=== PATIENT | male | born 1965 | race Two or more races ===

== ENCOUNTER 2024-01-30 03:50 | Emergency (ER) | payer BC, OTHER ==
[~2024-01-30] VITALS: Ht 172.7 cm; Wt 89.0 kg
[2024-01-30 04:45] VITALS: BP 123/73; PULSE 111; PULSE 88; RESP 16; TEMP 98.1; O2SAT 96; O2SAT 99
[2024-01-30 05:06] LABS: COVID19 ANTIGEN SOFIA FIA POSITIVE (NEGATIVE); Rapid Influenza A Negative (Negative); Rapid Influenza B Negative (Negative)
[2024-01-30] MEDS ORDERED: NIRM1TAB8 PO (05:10)
[2024-01-30] MEDS: KETOROLAC TROMETH 30 MG/ML 1ML VIAL IM ONE (05:22)
== END 2024-01-30 05:34 | disposition home or self-care (01) ==
LOC: ER 03:50 → EEVIPCON 03:50 → ER 05:32
DX: U07.1 COVID-19 (principal); E11.9 Type 2 diabetes mellitus without complications; Z88.8 Allergy status to other drugs, medicaments and biological substances
CPT/HCPCS: 36415; 71045; 87426; 87804; 96372; 99284; J1885

== ENCOUNTER 2024-03-27 13:10 | Inpatient (IN) | payer BC, OTHER ==
[~2024-03-27] VITALS: Ht 172.7 cm; Wt 75.5 kg
[~2024-03-27 13:10] MED LIST: NIRM1TAB8 PO
[2024-03-27] MEDS: SODIUM CHLORIDE 0.9% 1,000 ML IV ONE (14:25)
[2024-03-27] MEDS: metFORMIN HYDROCHLORIDE 500 MG TAB PO ONE (14:32)
[2024-03-27 14:41] LABS: Basophils # (auto) 0 10 ^3/uL (0-0.2); Basophils % (auto) 0.2 % (0.0-2.0); Eosinophils # (auto) 0.1 10 ^3/uL (0-0.8); Eosinophils % (auto) 1.7 % (0.0-7.0); Hematocrit 47.6 % (41.0-53.0); Hemoglobin 16.4 g/dL (13.5-17.5); Lymphocytes % (auto) 12.3 % (10.0-50.0); Mean Corpuscular Hemoglobin 33.1 pg (28.0-32.0); Mean Corpuscular Hgb Conc. 34.5 g/dL (32.0-36.0); Monocytes # (auto) 0.3 10 ^3/uL (0-1.3); Monocytes % (auto) 4.2 % (0.0-12.0); Neutrophils # (auto) 6.6 10 ^3/uL (1.6-8.6); Neutrophils % (auto) 81.6 % (37.0-80.0); Nucleated Red Blood Cells % 0.1 %; Platelet Count (auto) 188 10^3/uL (140-450); Red Blood Cells 4.96 10^6/uL (4.5-5.90); Red Cell Distribution Width 13.4 % (11.8-14.3); White Blood Cell 8.1 10^3/uL (4.4-10.8)
[2024-03-27 14:43] LABS: Alanine Aminotransferase 32 U/L (7-40); Albumin 4.1 g/dL (3.2-4.8); Alkaline Phosphatase 74 U/L (46-116); Anion Gap 6 (5-15); Aspartate Aminotransferase 19 U/L (13-40); BUN/Creatinine Ratio 19.6 (10.0-20.0); Bilirubin, Total 0.7 mg/dL (0.2-1.0); Blood Urea Nitrogen 21 mg/dL (9-23); Calcium 9.5 mg/dL (8.7-10.4); Carbon Dioxide 29 mmol/L (20-30); Chloride 99 mmol/L (98-107); Glucose 285 mg/dL (74-106); Magnesium 1.9 mg/dL (1.6-2.6); Potassium 4.2 mmol/L (3.5-5.1); Sodium 134 mmol/L (136-145)
[2024-03-27 14:44] LABS: Total Protein 6.3 g/dL (5.7-8.2)
[2024-03-27 14:48] LABS: Urine Bacteria MOD /hpf (None Seen); Urine Blood Negative /uL (Negative); Urine Clarity Turbid (Clear); Urine Color Colorless (Yellow); Urine Mucus FEW (None Seen); Urine Protein, UAD TRACE (Negative); Urine Specific Gravity 1.036 (1.001-1.035); Urine Urobilinogen Normal (Negative); Urine WBC 329 /hpf (0 - 3); Urine pH 5.5 (5.0-9.0)
[2024-03-27] MEDS ORDERED: DEXTROSE (50%) 50ML SYRG IV PRN (16:30)
[2024-03-27] MEDS ORDERED: ONDANSETRON HCL 4 MG/2 ML VIAL IV PRN (16:30)
[2024-03-27] MEDS ORDERED: DOCUSATE SOD 100 MG CAP PO PRN (16:30)
[2024-03-27] MEDS ORDERED: NITROGLYCERIN 0.4 MG SL TAB SL PRN (16:30)
[2024-03-27] MEDS ORDERED: MORPHINE SULFATE INJ 2 MG/ml SYRG IV PRN (16:30)
[2024-03-27] MEDS: SODIUM CHLORIDE 0.9% 1,000 ML IV SCH (17:55)
[2024-03-27] MEDS: cefTRIAXone 1GM/50ML D5W 50 ML IV ONE (17:55)
[2024-03-27] MEDS: AZITHROMYCIN 500MG/ 250ML 250 ML IV ONE (17:56)
[2024-03-27 19:45] VITALS: O2SAT 96
[2024-03-27 20:15] VITALS: O2SAT 96
[2024-03-27] MEDS: ACCU-CHEK COMFORT CURVE STRIP VI SCH (20:23)
[2024-03-27] MEDS: InsuLIN REG 1unit/0.01ml Soln (100units/ml) SC SCH (20:25)
[2024-03-27] MEDS: HYDROcodone-ACET 5/325MG TAB PO PRN (21:58)
[2024-03-27 22:07] VITALS: O2SAT 96
[2024-03-27 22:50] VITALS: BP 118/74; PULSE 89; RESP 18; TEMP 98.3; O2SAT 94
[2024-03-27 23:17] VITALS: BP 118/74; PULSE 89; RESP 18; TEMP 98.3; O2SAT 94
[2024-03-28] VITALS (8 sets, daily range): BP systolic 106–132; BP diastolic 56–84; PULSE 16–98; RESP 16–94; TEMP 98–99.3; O2SAT 94–98
[2024-03-28] MEDS ORDERED: METF-370 PO (06:26)
[2024-03-28 06:50] LABS: Basophils # (auto) 0 10 ^3/uL (0-0.2); Basophils % (auto) 0.1 % (0.0-2.0); Eosinophils # (auto) 0.1 10 ^3/uL (0-0.8); Eosinophils % (auto) 2.2 % (0.0-7.0); Hematocrit 43.9 % (41.0-53.0); Hemoglobin 15.4 g/dL (13.5-17.5); Lymphocytes # (auto) 0.8 10 ^3/uL (0.4-5.4); Mean Corpuscular Hemoglobin 33.3 pg (28.0-32.0); Mean Corpuscular Hgb Conc. 35.2 g/dL (32.0-36.0); Mean Corpuscular Volume 94.5 fL (80.0-100.0); Monocytes # (auto) 0.2 10 ^3/uL (0-1.3); Monocytes % (auto) 5.2 % (0.0-12.0); Neutrophils # (auto) 3.6 10 ^3/uL (1.6-8.6); Neutrophils % (auto) 76.5 % (37.0-80.0); Nucleated Red Blood Cells % 0.1 %; Platelet Count (auto) 142 10^3/uL (140-450); Red Blood Cells 4.64 10^6/uL (4.5-5.90); White Blood Cell 4.7 10^3/uL (4.4-10.8)
[2024-03-28 07:06] LABS: Alanine Aminotransferase 30 U/L (7-40); Albumin 3.5 g/dL (3.2-4.8); Alkaline Phosphatase 65 U/L (46-116); Calcium 8.4 mg/dL (8.7-10.4); Carbon Dioxide 24 mmol/L (20-30); Chloride 104 mmol/L (98-107)
[2024-03-28 07:07] LABS: Anion Gap 5 (5-15); Aspartate Aminotransferase 22 U/L (13-40); BUN/Creatinine Ratio 20.3 (10.0-20.0); Bilirubin, Total 0.6 mg/dL (0.2-1.0); Blood Urea Nitrogen 14 mg/dL (9-23); Potassium 3.6 mmol/L (3.5-5.1); Sodium 133 mmol/L (136-145); Total Protein 5.7 g/dL (5.7-8.2)
[2024-03-28 07:08] LABS: Glucose 161 mg/dL (74-106)
[2024-03-28] MEDS: cefTRIAXone 1GM/50ML D5W 50 ML IV SCH (08:35)
[2024-03-28] MEDS: AZITHROMYCIN 500MG/ 250ML 250 ML IV SCH (10:53)
[2024-03-28] MEDS ORDERED: DEXTROSE (50%) 50ML SYRG IV PRN (11:45)
[2024-03-28] MEDS: InsuLIN REG 1unit/0.01ml Soln (100units/ml) SC ONE (13:15)
[2024-03-28] MEDS: ACCU-CHEK COMFORT CURVE STRIP VI SCH (17:05)
[2024-03-28] MEDS: ACETAMINOPHEN 325 MG TAB PO PRN (17:59)
[2024-03-28] MEDS: TAMSULOSIN HYDROCHLORIDE 0.4 MG CAP PO SCH (17:59)
[2024-03-28] MEDS: InsuLIN REG 1unit/0.01ml Soln (100units/ml) SC SCH (18:05)
[2024-03-28 18:50] LABS: COVID19 ANTIGEN SOFIA FIA NEGATIVE (NEGATIVE); Rapid Influenza A Negative (Negative); Rapid Influenza B Negative (Negative)
[2024-03-29 04:46] VITALS: BP 109/76; PULSE 78; RESP 14; TEMP 98; O2SAT 95
[2024-03-29 08:00] VITALS: PULSE 85
[2024-03-29 08:07] LABS: PSA Free 0.13 ng/mL; Prostate Specific Antigen 1.2 ng/mL (0.0-4.0)
[2024-03-29 09:00] VITALS: BP 131/80; PULSE 96; RESP 18; TEMP 97.8; O2SAT 95
[2024-03-29] MEDS ORDERED: LEVO500T91 PO (10:43)
[2024-03-29] MEDS ORDERED: TAMS-35 PO (10:43)
== END 2024-03-29 12:48 | disposition home or self-care (01) | DRG 725 ==
LOC: ER 13:10 → EEVIPCON 13:10 → TELE 16:28 → TELE-E-ADS 23:20
PROVIDERS: ADMIT Nurse Practitioner Family; ATTEND Internal Medicine Geriatric Medicine
DX: N40.1 Benign prostatic hyperplasia with lower urinary tract symptoms (principal); J18.9 Pneumonia, unspecified organism; N39.0 Urinary tract infection, site not specified; E11.65 Type 2 diabetes mellitus with hyperglycemia; R35.0 Frequency of micturition; K59.00 Constipation, unspecified; Z79.84 Long term (current) use of oral hypoglycemic drugs; Z79.899 Other long term (current) drug therapy; Z79.4 Long term (current) use of insulin
CPT/HCPCS: 36415; 71045; 80053; 81001; 82962; 83605; 83735; 84154; 84484; 85025; 87086; 87088; 87186; 87426; 87804; G0378; J1815

== ENCOUNTER → 2024-05-15 | Outpatient (CLI) | payer BC, OTHER ==
[~2024-05-15] MED LIST changes: +LEVO500T91 PO; +METF-370 PO; -NIRM1TAB8 PO; +TAMS-35 PO
[2024-05-15 07:28] LABS: Urine Bacteria FEW /hpf (None Seen); Urine Blood Negative /uL (Negative); Urine Clarity Clear (Clear); Urine Color Yellow (Yellow); Urine Mucus FEW (None Seen); Urine Protein, UAD Negative (Negative); Urine Specific Gravity 1.024 (1.001-1.035); Urine Urobilinogen Normal (Negative); Urine WBC 3 /hpf (0 - 3); Urine pH 5.5 (5.0-9.0)
[2024-05-15 07:55] LABS: Creatinine, Urine 165.28 mg/dL (30.0-125.0); Triglycerides 91 mg/dL (< 150)
[2024-05-15 07:56] LABS: LDL Cholesterol 107 mg/dL (< 100)
[2024-05-15 07:57] LABS: Cholesterol 188 mg/dL (< 200); HDL Cholesterol 64 mg/dL (40-59)
[2024-05-15 08:02] LABS: Free T4 (Free Thyroxine) 1.47 ng/dL (0.89-1.76)
== END | disposition home or self-care (01) ==
LOC: LAB 07:00
PROVIDERS: ATTEND Internal Medicine
DX: N40.0 Benign prostatic hyperplasia without lower urinary tract symptoms (principal); E11.9 Type 2 diabetes mellitus without complications
CPT/HCPCS: 36415; 80061; 81001; 82043; 82570; 82607; 84439; 84443

== ENCOUNTER 2024-09-25 06:15 | Emergency (ER) | payer BC, OTHER ==
[~2024-09-25] VITALS: Ht 172.7 cm; Wt 91.7 kg
--- NOTE | 2024-09-25 06:52 | ED.PDOC ---
GI ASSESSMENT HPI Comments 59 year old male presents to the ED with chief complaint of N/V/D and hyperglycemia. Patient reports that he has been experiencing N/V/D since yesterday with associated hyperglycemia, noting that his BG yesterday was 252. Patient relays that he has been off of his Metformin for the past week due to insurance issues with his refill at the pharmacy. Patient denies any abdominal pain, fever, chills, dysuria, excess thirst, headache, or hematemesis. Chief Complaint: Hyperglycemia Time Seen by MD: 06:49 Primary Care Provider: UNKNOWN Reviewed Notes: Nurses Notes, Medications, Allergies Allergies: Coded Allergies: NO KNOWN ALLERGIES (Unverified , 01/30/24) Home Meds Active Scripts Metformin Hydrochloride (Metformin Hcl) 500 Mg Tab, 1 TAB PO BID for 5 Days, #10 TAB 3 Refills Prov:KENYA ELAINE MD 09/25/24 Levofloxacin Hemihydrate (LEVOFLOXACIN) 500 Mg Tab, 500 MG PO DAILY for 10 Days, #10 MG Prov:KENYA ELAINE MD 09/25/24 Ondansetron Odt 4MG Tab (ZOFRAN PO) 4 Mg Tb, 4 MG PO DAILY for 5 Days, #5 TAB ODT TAB-DISSOLVE IN MOUTH, THEN SWALLOW Prov:KENYA ELAINE MD 09/25/24 Tamsulosin Hcl (Flomax) 0.4 Mg Cap, 1 CAP PO DAILY, #30 CAP 11 Refills Prov:BOB RODAS MD 03/29/24 Levofloxacin Hemihydrate (LEVOFLOXACIN) 500 Mg Tab, 1 TAB PO DAILY, #7 TAB Prov:BOB RODAS MD 03/29/24 Reported Medications Metformin Hydrochloride (Metformin Hcl) 500 Mg Tab, 1000 MG PO DAILY for 30 Days, MG 03/28/24 Information Source: Patient Mode of Arrival: Ambulatory Timing: Days Duration: Since onset Prehospital treatment: None Quality: None Vomitus: Watery Stool: Watery Severity: Moderate Recent: None Recent Hx of: Diabetes Pain Location: None Modifying Factors: Nothing Associated sign and symptoms: Nausea, Vomiting, Diarrhea Past Medical History PAST MEDICAL HISTORY: DM Surgical History: Denies all surgeries Family History Family History: Reviewed,noncontributory to illness, No family hx of Cancer, No family hx of DM, No family hx of Heart nic, No family hx of HTN, No family hx ofKidney nic, No family hx of Liver nic, No family hx of Lung nic, No family hx of Stroke Social History Smoker: Non-Smoker Alcohol: Denies ETOH Use Drugs: Denies Drug Use Lives In: Home Constitutional: denies: chills, diaphoresis, fatigue, fever, malaise, sweats, w eakness, others EENTM: denies: blurred vision, double vision, ear bleeding, ear discharge, ear drainage, ear pain, ear ringing, eye pain, eye redness, hearing loss, mouth pain, mouth swelling, nasal discharge, nose bleeding, nose congestion, nose pain, photophobia, tearing, throat pain, throat swelling, voice changes, others Respiratory: denies: cough, hemoptysis, orthopnea, SOB at rest, shortness of breath, SOB with excertion, stridor, wheezing, others Cardiovascular: denies: chest pain, dizzy spells, diaphoresis, Dyspnea on exertion, edema, irregular heart beat, left arm pain, lightheadedness, palpitations, PND, syncope, others Gastrointestinal: reports: diarrhea, nausea, vomiting; denies: abdomen distended, abdominal pain, blood streaked bowels, constipated, dysphagia, difficulty swallowing, hematemesis, melena, poor appetite, poor fluid intake, rectal bleeding, rectal pain, others Genitourinary: denies: burning, dysuria, flank pain, frequency, hematuria, incontinence, penile discharge, penile sore, pain, testicle pain, testicle swelling, urgency, others Neurological: denies: dizziness, fainting, headache, left sided numbness, left sided weakness, numbness, paresthesia, pre-existing deficit, right sided numbness, right sided weakness, seizure, speech problems, tingling, tremors, weakness, others Musculoskeletal: denies: back pain, gout, joint pain, joint swelling, muscle pain, muscle stiffness, neck pain, others Integumetry: denies: bruises, change in color, change in hair/nails, dryness, laceration, lesions, lumps, rash, wounds, others Allergic/Immunocompromised: denies: Difficulty Healing, Frequent Infections, Hives, Itching, others Hematologic/Lymphatic: denies: anemia, blood clots, easy bleeding, easy bruising, swollen glands, others Endocrine: reports: others (hyperglycemia); denies: excessive hunger, excessive sweating, excessive thirst, excessive urination, flushing, intolerance to cold, intolerance to heat, unexplained weight gain, unexplained weight loss Psychiatric: denies: anxiety, bipolar disorder, depression, hopeless, panic disorder, schizophrenia, sleepless, suicidal, others All Other Systems: Reviewed and Negative Physical Exam General Appearance: Moderate Distress, Normal HEENT: Normal ENT Inspection, PERRL/EOMI Neck: Full Range of Motion, Non-Tender, Normal, Normal Inspection Respiratory: Chest Non-Tender, Lungs Clear, No Accessory Muscle Use, No Respiratory Distress, Normal Breath Sounds Cardiovascular: No Edema, No JVD, No Murmur, No Gallop, Normal Peripheral Pulses, Regular Rate/Rhythm Breast Exam: Deferred Gastrointestinal: No Organomegaly, Non Tender, No Pulsatile Mass, Normal Bowel Sounds, Soft Genitalia: Deferred Pelvic: Deferred Rectal: Deferred Extremities: No calf tenderness, Normal capillary refill, Normal inspection, Normal range of motion, Non-tender, No pedal edema Musculoskeletal : Apperance: Normal Neurologic: Alert, 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 Was a procedure done?: No GI differential Dx Differential Diagnosis: Constipation, Diverticular disease, Esophagitis, Gastritis/PUD, Gastroenteritis X-Ray, Labs, Meds, VS Vital Signs Date Time Temp Pulse Resp B/P (MAP) Pulse Ox O2 Delivery O2 Flow Rate FiO2 09/25/24 08:00 97.5 91 18 139/93 (108) 97 97.5 09/25/24 07:33 Room Air* 0 21 09/25/24 06:31 97.6 105 18 123/89 (100) 95 97.6 Lab Test 09/25/24 08:40 09/25/24 08:01 09/25/24 07:06 09/25/24 06:27 Range/Units POC Glucose 173 H 234 H 284 H 70-106 mg/dl White Blood Count 7.0 4.4-10.8 10^3/uL Red Blood Count 5.19 4.5-5.90 10^6/uL Hemoglobin 17.3 13.5-17.5 g/dL Hematocrit 49.3 41.0-53.0 % Mean Corpuscular Volume 94.9 80.0-100.0 fL Mean Corpuscular Hemoglobin 33.3 H 28.0-32.0 pg Mean Corpuscular Hemoglobin Concent 35.1 32.0-36.0 g/dL Red Cell Distribution Width 12.6 11.8-14.3 % Platelet Count 174 140-450 10^3/uL Mean Platelet Volume 8.3 6.9-10.8 fL Neutrophils (%) (Auto) 72.9 37.0-80.0 % Lymphocytes (%) (Auto) 19.4 10.0-50.0 % Monocytes (%) (Auto) 6.0 0.0-12.0 % Eosinophils (%) (Auto) 1.5 0.0-7.0 % Basophils (%) (Auto) 0.2 0.0-2.0 % Neutrophils # (Auto) 5.1 1.6-8.6 10 ^3/uL Lymphocytes # (Auto) 1.4 0.4-5.4 10 ^3/uL Monocytes # (Auto) 0.4 0-1.3 10 ^3/uL Eosinophils # (Auto) 0.1 0-0.8 10 ^3/uL Basophils # (Auto) 0 0-0.2 10 ^3/uL Nucleated Red Blood Cells 0.1 % Sodium Level 133 L 136-145 mmol/L Potassium Level 3.3 L 3.5-5.1 mmol/L Chloride Level 102 98-107 mmol/L Carbon Dioxide Level 22 20-31 mmol/L Anion Gap 9 5-15 Blood Urea Nitrogen 15 9-23 mg/dL Creatinine 1.17 0.700-1.30 mg/dL Glomerular Filtration Rate Calc 72 >90 mL/min BUN/Creatinine Ratio 12.8 10.0-20.0 Serum Glucose 267 H 74-106 mg/dL Calcium Level 8.0 L 8.7-10.4 mg/dL Current Medications Medications (Trade) Dose Ordered Sig/Roma Route Start Time Stop Time Status Last Admin Sodium Chloride 1,000 ml @ 1,000 mls/hr Q1H ONCE IV 09/25/24 06:45 09/25/24 07:44 DC 09/25/24 06:53 Sodium Chloride 1,000 ml @ 150 mls/hr Q6H40M ONCE IV 09/25/24 06:45 09/25/24 13:24 09/25/24 07:44 Insulin Human Regular (InsuLIN R) 3 units ONCE ONCE IV 09/25/24 08:00 09/25/24 08:01 DC 09/25/24 08:13 Potassium Bicarbonate (Klor-Con/Ef) 25 meq ONCE ONCE PO 09/25/24 08:15 09/25/24 08:16 DC 09/25/24 08:13 CT Abd/Pel: FINDINGS: Lung bases: Fibrotic changes in the lung bases. Liver: Hepatic steatosis. Biliary: Calcified gallstones of the gallbladder neck and possibly in the cystic duct, with narrowing of the gallbladder neck. Spleen: Unremarkable. Pancreas: Grossly unremarkable in its noncontrast enhanced appearance. Adrenal glands: Unremarkable. No mass. Kidneys: No hydronephrosis. No renal or ureteral calculi. Nonspecific slight lobulated contour of the mid to upper pole of the right kidney Aorta/Vascular: No aneurysm or significant calcification. Retroperitoneum: No mass or lymphadenopathy. Bowel/mesentery: No small bowel obstruction. No free air or free fluid. Appendix is visualized and appears unremarkable. Scattered colonic diverticula without adjacent inflammatory changes to suggest diverticulitis. Pelvic organs: Grossly unremarkable. Bladder: Grossly unremarkable. Abdominal wall: Moderate fat containing direct right inguinal hernia. Bones: No acute fracture or suspicious intraosseous lesion. IMPRESSION: 1. Cholelithiasis. 2. Hepatic steatosis. 3. Scattered colonic diverticula without adjacent inflammatory changes to suggest diverticulitis. 4. Moderate-sized fat containing direct right inguinal hernia 5. Fibrotic changes in the lung bases with some honeycombing. Findings may be seen with usual interstitial pneumonia or fibrotic nonspecific interstitial pneumonia. Patient alert. Complaining of generalized weakness. Nausea vomiting diarrhea since yesterday. Vitals stable. Blood sugar elevated. Abdomen is soft nontender. CT scan of the abdomen reviewed does show gallstones lung cuts does show pneumonia. Establish intravenous access. Was given fluids. Was given insulin. Was given prescription of Zofran Levaquin antibiotic. Explained to the patient. Was told to follow up with his primary care physician. Was told to come back if there is any problem. Time of 1ST Reevaluation: 07:49 Reevaluation 1ST: Unchanged Patient Education/Counseling: Diagnosis, Treatment Family Education/Counseling: No Family Present Additional Information Previous visit documents reviewed: 03/27/24 for pneumonia The following tests were ordered, and results were reviewed by me: CBC, BMP, CT Abd/Pel Additional Information was gathered from interviewing the following independent historians: None I reviewed and agreed with the following test results read by other providers: CT Abd/Pel I discussed treatment and results with medical personnel and: Patient Departure 1 Departure Time of Disposition: 07:53 Impression: Primary Impression: Uncontrolled diabetes mellitus Qualified Codes: E13.65 - Other specified diabetes mellitus with hyperglycemia Additional Impressions: Pneumonia, interstitial Interstitial pneumonia Disposition: HOME / SELF CARE / HOMELESS Condition: Good e-Prescriptions Metformin Hydrochloride (Metformin Hcl) 500 Mg Tab 1 TAB PO BID for 5 Days, #10 TAB 3 Refills Prov: KENYA ELAINE MD 09/25/24 Levofloxacin Hemihydrate (LEVOFLOXACIN) 500 Mg Tab 500 MG PO DAILY for 10 Days, #10 MG Prov: KENYA ELAINE MD 09/25/24 Ondansetron Odt 4MG Tab (ZOFRAN PO) 4 Mg Tb 4 MG PO DAILY for 5 Days, #5 TAB ODT TAB-DISSOLVE IN MOUTH, THEN SWALLOW Prov: KENYA ELAINE MD 09/25/24 Discharged With: Self Critical Care Note Critical Care Time?: No Stability Stability form required: No Heart Score Heart Score: Heart Score Response (Comments) Value History N/A 0 EKG N/A 0 Age N/A 0 Risk Factors N/A 0 Troponin N/A 0 Total 0 I personally scribed for KENYA ELAINE MD ([email or web address]) on 09/25/24 at 06:52. Electronically submitted by Viktor Rodriguez ([email or web address]). I personally scribed for KENYA ELAINE MD ([email or web address]) on 09/25/24 at 07:37. Electronically submitted by Viktor Rodriguez ([email or web address]). KENYA ELAINE MD Sep 25, 2024 06:52
[2024-09-25] MEDS: SODIUM CHLORIDE 0.9% 1,000 ML IV ONE ×2 (06:53→07:44)
[2024-09-25 07:20] LABS: Basophils # (auto) 0 10 ^3/uL (0-0.2); Basophils % (auto) 0.2 % (0.0-2.0); Eosinophils # (auto) 0.1 10 ^3/uL (0-0.8); Eosinophils % (auto) 1.5 % (0.0-7.0); Hematocrit 49.3 % (41.0-53.0); Hemoglobin 17.3 g/dL (13.5-17.5); Lymphocytes # (auto) 1.4 10 ^3/uL (0.4-5.4); Lymphocytes % (auto) 19.4 % (10.0-50.0); Mean Corpuscular Hemoglobin 33.3 pg (28.0-32.0); Mean Corpuscular Hgb Conc. 35.1 g/dL (32.0-36.0); Mean Corpuscular Volume 94.9 fL (80.0-100.0); Monocytes # (auto) 0.4 10 ^3/uL (0-1.3); Neutrophils # (auto) 5.1 10 ^3/uL (1.6-8.6); Neutrophils % (auto) 72.9 % (37.0-80.0); Nucleated Red Blood Cells % 0.1 %; Platelet Count (auto) 174 10^3/uL (140-450); Red Blood Cells 5.19 10^6/uL (4.5-5.90); Red Cell Distribution Width 12.6 % (11.8-14.3)
[2024-09-25 07:32] LABS: Chloride 102 mmol/L (98-107)
[2024-09-25 07:33] LABS: Anion Gap 9 (5-15); Carbon Dioxide 22 mmol/L (20-31)
--- NOTE | 2024-09-25 07:36 | DVH ---
CLINICAL INFORMATION: 59 years old, Male; enteritis. Abdominal pain. TECHNIQUE: Axial CT images of the abdomen and pelvis were obtained without IV contrast. Coronal and s agittal reformatted images were obtained, reviewed, and stored. Evaluation of the parenchymal organs is limited without IV contrast. Evaluation of the bowel and mesentery is limited without oral contras t. All CT scans at this medical facility are performed using dose modulation techniques as appropriat e to a performed exam including the following: Automated exposure control was utilized; adjustment of the MA and/or KV according to patient size; and use of iterative reconstruction technique. CTDIvol = 18.61 mGy DLP = 1123.28 mGy-cm COMPARISON: None FINDINGS: Lung bases: Fibrotic changes in the lung bases. Liver: Hepatic steatosis. Biliary: Calcified gallstones of the gallbladder neck and possibly in the cystic duct, with narrowing of the gallbladder neck. Spleen: Unremarkable. Pancreas: Grossly unremarkable in its noncontrast enhanced appearance. Adrenal glands: Unremarkable. No mass. Kidneys: No hydronephrosis. No renal or ureteral calculi. Nonspecific slight lobulated contour of the mid to upper pole of the right kidney Aorta/Vascular: No aneurysm or significant calcification. Retroperitoneum: No mass or lymphadenopathy. Bowel/mesentery: No small bowel obstruction. No free air or free fluid. Appendix is visualized and ap pears unremarkable. Scattered colonic diverticula without adjacent inflammatory changes to suggest d iverticulitis. Pelvic organs: Grossly unremarkable. Bladder: Grossly unremarkable. Abdominal wall: Moderate fat containing direct right inguinal hernia. Bones: No acute fracture or suspicious intraosseous lesion. IMPRESSION: 1. Cholelithiasis. 2. Hepatic steatosis. 3. Scattered colonic diverticula without adjacent inflammatory changes to suggest diverticulitis. 4. Moderate-sized fat containing direct right inguinal hernia 5. Fibrotic changes in the lung bases with some honeycombing. Findings may be seen with usual inters titial pneumonia or fibrotic nonspecific interstitial pneumonia.
[2024-09-25 07:38] LABS: BUN/Creatinine Ratio 12.8 (10.0-20.0); Blood Urea Nitrogen 15 mg/dL (9-23)
[2024-09-25 07:40] LABS: Glucose 267 mg/dL (74-106); Potassium 3.3 mmol/L (3.5-5.1); Sodium 133 mmol/L (136-145)
[2024-09-25] MEDS ORDERED: LEVO500T91 PO (07:55)
[2024-09-25] MEDS ORDERED: ZOFR4T PO (07:55)
[2024-09-25] MEDS ORDERED: METF-370 PO (07:55)
[2024-09-25 08:00] VITALS: BP 139/93; PULSE 91; RESP 18; TEMP 97.5; O2SAT 97
[2024-09-25] MEDS: InsuLIN REG 1unit/0.01ml Soln (100units/ml) IV ONE (08:13)
[2024-09-25] MEDS: POTASSIUM EFFERVESENT TAB 25 MEQ PO ONE (08:13)
== END 2024-09-25 09:23 | disposition home or self-care (01) ==
LOC: ER 06:15
DX: E11.65 Type 2 diabetes mellitus with hyperglycemia (principal); J18.9 Pneumonia, unspecified organism; Z79.84 Long term (current) use of oral hypoglycemic drugs; Z79.899 Other long term (current) drug therapy
CPT/HCPCS: 36415; 74176; 80048; 82947; 85025; 96361; 96374; 99285; J1815; J7030; 82962

== ENCOUNTER → 2025-01-07 | Outpatient (CLI) | payer BC ==
[~2025-01-07] MED LIST changes: +ZOFR4T PO
[2025-01-07 06:37] LABS: Urine Bacteria None Seen /hpf (None Seen)
[2025-01-07 07:07] LABS: Basophils # (auto) 0 10 ^3/uL (0-0.2); Basophils % (auto) 0.2 % (0.0-2.0); Eosinophils # (auto) 0.1 10 ^3/uL (0-0.8); Eosinophils % (auto) 1.1 % (0.0-7.0); Hematocrit 50.4 % (41.0-53.0); Hemoglobin 17.2 g/dL (13.5-17.5); Lymphocytes # (auto) 2.5 10 ^3/uL (0.4-5.4); Lymphocytes % (auto) 29.1 % (10.0-50.0); Mean Corpuscular Hemoglobin 31.6 pg (28.0-32.0); Mean Corpuscular Hgb Conc. 34.2 g/dL (32.0-36.0); Mean Corpuscular Volume 92.4 fL (80.0-100.0); Monocytes # (auto) 0.4 10 ^3/uL (0-1.3); Monocytes % (auto) 4.9 % (0.0-12.0); Neutrophils # (auto) 5.6 10 ^3/uL (1.6-8.6); Neutrophils % (auto) 64.7 % (37.0-80.0); Nucleated Red Blood Cells % 0.1 %; Platelet Count (auto) 180 10^3/uL (140-450); Red Blood Cells 5.45 10^6/uL (4.5-5.90); Red Cell Distribution Width 12.9 % (11.8-14.3); White Blood Cell 8.6 10^3/uL (4.4-10.8)
[2025-01-07 07:49] LABS: Urine Blood Negative /uL (Negative); Urine Clarity Clear (Clear); Urine Color Light-Yellow (Yellow); Urine Protein, UAD Negative (Negative); Urine Sperm PRESENT /hpf (None Seen); Urine Squamous Epithelial Cell None Seen /hpf (<5); Urine Urobilinogen Normal (Negative); Urine WBC 3 /HPF (0-3); Urine pH 5.5 (5.0-9.0)
[2025-01-07 08:18] LABS: Alanine Aminotransferase 20 U/L (7-40); Alkaline Phosphatase 64 U/L (46-116); Anion Gap 11 (5-15); Aspartate Aminotransferase 13 U/L (<34); BUN/Creatinine Ratio 16.3 (10.0-20.0); Blood Urea Nitrogen 14 mg/dL (9-23); Calcium 9.3 mg/dL (8.7-10.4); Carbon Dioxide 24 mmol/L (20-31); Chloride 103 mmol/L (98-107); Cholesterol 170 mg/dL (< 200); HDL Cholesterol 50 mg/dL (40-59); LDL Cholesterol 84 mg/dL (< 100); Potassium 4.1 mmol/L (3.5-5.1); Sodium 138 mmol/L (136-145); Total Protein 6.3 g/dL (5.7-8.2)
[2025-01-07 08:19] LABS: Bilirubin, Total 0.6 mg/dL (0.2-1.0); Glucose 216 mg/dL (74-106); Triglycerides 188 mg/dL (< 150)
[2025-01-07 08:22] LABS: Albumin 4.1 g/dL (3.2-4.8)
[2025-01-07 08:46] LABS: Erythrocyte Sedimentation Rate 2 mm/hr (0-20)
[2025-01-07 08:58] LABS: Creatinine, Urine 117.62 mg/dL (30.0-125.0)
[2025-01-07 11:17] LABS: Prostate Specific Antigen 0.73 ng/mL (0.0-4.0)
[2025-01-07 11:22] LABS: Free T4 (Free Thyroxine) 1.28 ng/dL (0.89-1.76)
== END | disposition home or self-care (01) ==
LOC: LAB 06:21
PROVIDERS: ATTEND Internal Medicine
DX: I10 Essential (primary) hypertension (principal); E11.9 Type 2 diabetes mellitus without complications; E78.00 Pure hypercholesterolemia, unspecified; Z79.899 Other long term (current) drug therapy
CPT/HCPCS: 36415; 80053; 80061; 81001; 82043; 82570; 83036; 84153; 84439; 84443; 85025; 85652